=== PATIENT | male | born 1940 | race Caucasian/White ===

== ENCOUNTER 2021-11-20 10:09 | Outpatient (CLI) | payer MEDICARE ==
[2021-11-20] MEDS ORDERED: Iopamidol 300 61% 100 ML VIAL FS ONE (12:48)
== END 2021-11-20 10:10 | disposition home or self-care (01) ==
LOC: CSHCT 10:09
PROVIDERS: ATTEND Internal Medicine Gastroenterology
DX: R10.11 Right upper quadrant pain (principal); K57.30 Diverticulosis of large intestine without perforation or abscess without bleeding; R93.3 Abnormal findings on diagnostic imaging of other parts of digestive tract
CPT/HCPCS: 74177; 82565; Q9967

== ENCOUNTER 2024-04-07 12:36 | Outpatient (CLI) | payer MEDICARE | END 2024-04-07 12:37 | disposition home or self-care (01) | LOC: CSHMRI 12:36 | PROVIDERS: ATTEND Family Medicine | DX: R41.89 Other symptoms and signs involving cognitive functions and awareness (principal); G31.9 Degenerative disease of nervous system, unspecified | CPT/HCPCS: 70551 ==

== ENCOUNTER 2024-04-19 08:35 | Outpatient (CLI) | payer MEDICARE | END 2024-04-19 08:36 | disposition home or self-care (01) | LOC: CSHSLEEP 08:35 | PROVIDERS: ATTEND Family Medicine | DX: G47.33 Obstructive sleep apnea (adult) (pediatric) (principal); R41.89 Other symptoms and signs involving cognitive functions and awareness; R06.83 Snoring; I25.10 Atherosclerotic heart disease of native coronary artery without angina pectoris; G25.89 Other specified extrapyramidal and movement disorders | CPT/HCPCS: 95810 ==

== ENCOUNTER 2024-04-30 08:39 | Outpatient (CLI) | payer MEDICARE | END 2024-04-30 08:40 | disposition home or self-care (01) | LOC: CSHSLEEP 08:39 | PROVIDERS: ATTEND Family Medicine | DX: G47.33 Obstructive sleep apnea (adult) (pediatric) (principal); R41.89 Other symptoms and signs involving cognitive functions and awareness; R06.83 Snoring; I25.10 Atherosclerotic heart disease of native coronary artery without angina pectoris | CPT/HCPCS: 95811 ==